=== PATIENT | female | born 1995 | race Caucasian/White ===

== ENCOUNTER → 2018-06-01 14:57 | Outpatient (CLI) | payer OTHER, MEDICAID, SELFPAY ==
[2018-06-01 15:12] LABS: Add Manual Diff / Slide Review NO; Basophils Percent Auto 0.7 % (0-2); Eosinophils Percent Auto 0.7 % (2-4); Hematocrit 41.1 % (36-46); Hemoglobin 14.1 g/dL (12.0-16.0); Mean Corpuscular HGB Conc 34.3 % (30-36); Mean Corpuscular Hemoglobin 30.6 PG (26-34); Monocytes Percent Auto 7.6 % (3-14); Neutrophils Absolute Auto 4300 /uL (1500-7000); Platelet Count 191 X10^3/uL (150-400); Red Blood Cell Count 4.62 X10^6/uL (4.0-5.2); White Blood Cell Count 6.3 X10^3/uL (4.5-11.0)
[2018-06-01 15:24] LABS: Alanine Aminotransferase 24 IU/L (9-52); Albumin 4.5 g/dL (3.5-5.0); Albumin Globulin Ratio 1.7 (1.0-2.8); Alkaline Phosphatase 38 U/L (38-126); Aspartate Aminotransferase 22 IU/L (14-36); BUN Creatinine Ratio 18.3 (6-22); Bilirubin Total 0.3 mg/dL (0.2-1.3); Blood Urea Nitrogen 11 mg/dL (7-17); Calcium 9.6 mg/dL (8.4-10.2); Carbon Dioxide 25 mmol/L (22-32); Chloride 106 mmol/L (98-107); Estimated Glomerular Filt Rate > 60.0 mL/min (>60); Globulin 2.6 g/dL (1.7-4.1); Glucose 87 mg/dL (70-100); HEMOLYSIS < 15 (0-50); Potassium 3.6 mmol/L (3.4-5.1); Sodium 143 mmol/L (137-145); Total Protein 7.1 g/dL (6.3-8.2)
[2018-06-01 15:37] LABS: HEMOLYSIS < 15 (0-50); Iron 55 ug/dL (37-170)
[2018-06-01 15:48] LABS: Percent Iron Saturation 16 % (15-50); Total Iron Binding Capacity 349 ug/dL (265-497); Transferrin 287 mg/dL (206-381)
[2018-06-01 15:59] LABS: Ferritin 8.8 ng/mL (6.27-137)
[2018-06-01 16:13] LABS: Vitamin B12 437 pg/mL (239-931)
== END ==
PROVIDERS: Visit Provider Physician Assistant
DX: R10.9 Unspecified abdominal pain (principal); R53.83 Other fatigue
CPT/HCPCS: 36415; 80053; 82607; 82728; 83540; 83550; 84443; 85025

== ENCOUNTER → 2019-05-01 14:32 | Outpatient (CLI) | payer OTHER, MEDICAID, SELFPAY ==
[2019-05-01 15:03] LABS: Add Manual Diff / Slide Review NO; Basophils Absolute Auto 0 /uL (0-100); Basophils Percent Auto 0.6 % (0-2); Eosinophils Absolute Auto 0 /uL (0-450); Eosinophils Percent Auto 0.6 % (2-4); Hematocrit 42.4 % (36-46); Hemoglobin 14.3 g/dL (12.0-16.0); Lymphocytes Absolute Auto 1500 /uL (1100-4500); Lymphocytes Percent Auto 19.5 % (25-40); Mean Corpuscular HGB Conc 33.8 % (30-36); Mean Corpuscular Hemoglobin 30.3 PG (26-34); Mean Corpuscular Volume 89.7 fL (80-100); Monocytes Absolute Auto 600 /uL (0-900); Monocytes Percent Auto 7.7 % (3-14); Neutrophils Absolute Auto 5700 /uL (1500-7000); Neutrophils Percent Auto 71.6 % (50-75); Platelet Count 164 X10^3/uL (150-400); Red Blood Cell Count 4.72 X10^6/uL (4.0-5.2); Red Cell Distribution Width 13.7 % (11.6-14.8); White Blood Cell Count 7.9 X10^3/uL (4.5-11.0)
[2019-05-01 15:19] LABS: Appearance Urine UA CLEAR; Bilirubin Urine UA NEGATIVE (NEGATIVE); Color Urine UA YELLOW; Glucose Urine UA NEGATIVE (Negative); Ketones Urine UA TRACE (NEGATIVE); Leukocyte Esterase Urine UA NEGATIVE (NEGATIVE); Nitrite Urine UA NEGATIVE (Negative); Occult Blood Urine UA NEGATIVE (Negative); Protein Urine UA NEGATIVE (Negative); Urobilinogen Urine UA 0.2 E.U./dL (0.2)
[2019-05-01 16:12] LABS: Hepatitis B Surface Antigen NEGATIVE s/c (NEGATIVE); Rubella Antibody IgG 9.2 IU/mL (>15)
[2019-05-01 16:25] LABS: HIV 1 & 2 Ab/Ag 4th Gen Combo NEGATIVE (NEGATIVE); Hep C Virus Ab w/Reflex Quant NEGATIVE s/c (NEGATIVE)
[2019-05-04 23:41] LABS: RPR Screen Nonreactive (Nonreactive)
== END ==
PROVIDERS: Visit Provider Obstetrics & Gynecology
DX: Z34.01 Encounter for supervision of normal first pregnancy, first trimester (principal)
CPT/HCPCS: 36415; 80055; 81003; 86787; 86803; 86850; 86900; 86901; 87086; 87389

== ENCOUNTER 2019-06-08 15:30 | Emergency (ER) | payer OTHER, MEDICAID, SELFPAY ==
[2019-06-08 16:13] VITALS: BP 101/62; PULSE 72; RESP 16; TEMP 37.2; O2SAT 100; BMI 22.4
[2019-06-08 16:55] LABS: Add Manual Diff / Slide Review NO; Basophils Absolute Auto 0 /uL (0-100); Basophils Percent Auto 0.4 % (0-2); Eosinophils Absolute Auto 0 /uL (0-450); Eosinophils Percent Auto 0.6 % (2-4); Hematocrit 39.8 % (36-46); Hemoglobin 14.1 g/dL (12.0-16.0); Lymphocytes Absolute Auto 1500 /uL (1100-4500); Lymphocytes Percent Auto 23.4 % (25-40); Mean Corpuscular HGB Conc 35.3 % (30-36); Mean Corpuscular Hemoglobin 31.4 PG (26-34); Monocytes Absolute Auto 500 /uL (0-900); Monocytes Percent Auto 8.1 % (3-14); Neutrophils Absolute Auto 4400 /uL (1500-7000); Neutrophils Percent Auto 67.5 % (50-75); Platelet Count 152 X10^3/uL (150-400); Red Blood Cell Count 4.47 X10^6/uL (4.0-5.2); Red Cell Distribution Width 13.8 % (11.6-14.8); White Blood Cell Count 6.6 X10^3/uL (4.5-11.0)
[2019-06-08 17:04] LABS: Alanine Aminotransferase 12 IU/L (<35); Albumin 4.2 g/dL (3.5-5.0); Albumin Globulin Ratio 1.4 (1.0-2.8); Alkaline Phosphatase 35 U/L (38-126); Aspartate Aminotransferase 19 IU/L (14-36); Bilirubin Total 0.2 mg/dL (0.2-1.3); Blood Urea Nitrogen 9 mg/dL (7-17); Calcium 9.4 mg/dL (8.4-10.2); Carbon Dioxide 23 mmol/L (22-32); Chloride 104 mmol/L (98-107); Estimated Glomerular Filt Rate > 60.0 mL/min (>60); Globulin 2.9 g/dL (1.7-4.1); Glucose 81 mg/dL (70-100); HEMOLYSIS < 15 (0-50); Potassium 3.4 mmol/L (3.4-5.1); Sodium 139 mmol/L (137-145); Total Protein 7.1 g/dL (6.3-8.2)
[2019-06-08 17:45] LABS: HCG Quantitative /Beta subunit 39401 mIU/mL
[2019-06-08 19:15] LABS: RBC Urine None Seen (0-5/HPF)
[2019-06-08] MEDS: ONDANSETRON 4 MG/2 ML INJ IV (19:15)
[2019-06-08] MEDS: SODIUM CHLORIDE 0.9% 1,000 ML 1000 ML IV ×2 (19:15→20:05)
[2019-06-08 19:16] LABS: Appearance Urine UA CLEAR; Bilirubin Urine UA NEGATIVE (NEGATIVE); Color Urine UA YELLOW; Glucose Urine UA NEGATIVE (Negative); Ketones Urine UA NEGATIVE (NEGATIVE); Leukocyte Esterase Urine UA NEGATIVE (NEGATIVE); Nitrite Urine UA NEGATIVE (Negative); Occult Blood Urine UA NEGATIVE (Negative); Protein Urine UA NEGATIVE (Negative); Urobilinogen Urine UA 0.2 E.U./dL (0.2)
[2019-06-08 19:25] LABS: pH Urine UA 6.5 (4.5-8.0)
[2019-06-08 19:26] LABS: Amorphous Sediment Urine 1+; Bacteria Urine Occasional (0-1); Mucus Urine 2+ (Negative); Squamous Epithelial Cell Urine 1-5 /HPF (0-5/HPF); WBC Urine 1-5/HPF (0-5/HPF)
[2019-06-08 19:27] LABS: Culture Indicated Urine Cult Not Indicated
[2019-06-08 19:39] VITALS: BP 105/70
--- NOTE | 2019-06-08 19:54 | ED_ITS ---
HPI - Nausea/Vomiting/Diarrhea General Chief complaint: Nausea/Vomiting/Diarrhea Stated complaint: 14wks , weight loss, sent by DO for fluids Time Seen by Provider: 06/08/19 19:27 Source: patient Mode of arrival: Ambulatory Limitations: no limitations History of Present Illness HPI Narrative: 24-year-old female nonsmoker is a at 14 weeks sent by her psychology technician because of persistent nausea, vomiting decreased appetite and had 10-15 lb weight loss in the past 1-2 weeks. She denies any significant pain and has had no fever or chills. She has no dysuria, frequency or urgency and denies pelvic pain, bleeding or cramping. She was given a prescription for Zofran last night and has been able to eat and drink without difficulty today. She was sent in for fluids and further evaluation. Patient was having episodes of dizziness and lightheadedness upon standing but that has since resolved MD complaint: nausea and vomiting Onset (ago): week(s) Description of Vomiting: food contents Description of Diarrhea: none Associated Abdominal Pain: No Severity: moderate Relieving factors: none Exacerbating factors: none Associated symptoms: denies other symptoms Related Data Home Medications Medication Instructions Recorded Confirmed prenat.vits,london,[id number] 1 tab PO DAILY 05/01/19 06/08/19 Previous Rx's Medication Instructions Recorded ondansetron 4 mg disintegrating 4 mg PO Q8H PRN #20 tab 06/07/19 tablet Allergies Allergy/AdvReac Type Severity Reaction Status Date / Time No Known Drug Allergies Allergy Verified 06/08/19 16:13 Review of Systems Constitutional Constitutional: Denies chills, Denies fatigue, Denies fever(s), Denies frequent falls, Denies lethargy and Denies weakness Eyes Eyes: Denies change in vision, Denies eye discharge, Denies irritation and Denies loss of vision ENT Ears, Nose, Mouth, and Throat: Denies change in voice, Denies dizziness, Denies neck pain, Denies sore throat and Denies throat swelling Cardiovascular Cardiovascular: Denies chest pain, Denies irregular heart rhythm, Denies lightheadedness, Denies palpitations, Denies dyspnea, Denies dyspnea on exertion and Denies orthopnea Respiratory Respiratory: Denies cough, Denies dyspnea, Denies dyspnea on exertion and Denies wheezing Gastrointestinal Gastrointestinal: Denies abdominal pain, Denies change in bowel habits, Denies diarrhea, Reports nausea and Reports vomiting Genitourinary Genitourinary: Denies hematuria, Denies flank pain, Denies urinary incontinence and Denies urinary urgency Musculoskeletal Musculoskeletal: Denies back pain, Denies muscle weakness, Denies neck pain, Denies numbness and Denies tingling Integumentary/Breasts Skin/Breast: Denies pruritus, Denies erythema, Denies rash and Denies wounds Neurologic Neurologic: Denies behavioral changes, Denies confusion, Denies dizziness, Denies frequent falls, Denies loss of vision, Denies numbness, Denies tingling and Denies weakness Psychiatric Psychiatric: Denies anxiety, Denies behavioral changes, Denies confusion, Denies depression, Denies homicidal ideation and Denies suicidal ideation Endocrine Endocrine: Denies fatigue, Denies flushing and Denies palpitations Hematologic/Lymphatic Hematologic/Lymphatic: Denies easy bruising Allergic/Immunologic Allergic/Immunologic: Denies urticaria, Denies throat swelling and Denies wheezing Patient History Medical History Anemia (Acute) Asthma (Chronic) Eczema (Acute) Family history of fraternal twins (Acute) Stomach pain (Acute) Surgical History [place] teeth extracted (Acute) Social History marital status: unmarried,single (In a relationship with Khang.) education level: high school occupational status: employed ([employer]) current occupational exposures/hazards: No special erlinda needs: No Smoking Status: Never smoker Smoking Status: Never smoker Substance Use Type: does not use Exam Narrative Exam Narrative: GENERAL: [24] year old patient appears stated age. Well- nourished, well-developed patient, in mild distress. HEAD: Atraumatic. Normocephalic. EYES: Pupils equal round and reactive. Extraocular motions intact. No scleral icterus. No injection or drainage. ENT: Nose without bleeding, purulent drainage. Throat without erythema, tonsillar hypertrophy or exudate. Airway patent. NECK: Trachea midline. Non tender CARDIOVASCULAR: Regular rate and rhythm without murmurs, gallops, or rubs. RESPIRATORY: Clear to auscultation. Breath sounds equal bilaterally. No wheezes, rales, or rhonchi. GASTROINTESTINAL: Abdomen soft, non-tender, nondistended. EXTREMITIES: No edema or joint tenderness. BACK: Nontender without deformity or crepitance. No flank tenderness. NEURO: AOx3. SKIN: No rash or erythema of visible areas Initial Vital Signs Initial Vital Signs: Vital Signs Temperature 99 F 06/08/19 16:13 Pulse Rate 72 06/08/19 16:13 Respiratory Rate 16 06/08/19 16:13 Blood Pressure 101/62 06/08/19 16:13 Pulse Oximetry 100 06/08/19 16:13 Course Orders Ordered: ED Orders 06/08/19 16:35 Complete Blood Count AUTO DIFF Stat Comprehensive Metabolic Panel Stat HCG Quantitative Stat Ketones (Beta-Hydroxybutyrate) Stat 06/08/19 19:13 Urinalysis and Microscopic Stat 06/08/19 20:27 US OB limited Stat Discontinued Medications Sodium Chloride (Normal Saline 0.9%) 1,000 mls @ 1,000 mls/hr IV BOLUS ONE Stop: 06/08/19 17:27 Last Infusion: 06/08/19 20:04 Dose: 0 mls/hr Documented by: Admin: 06/08/19 19:15 Dose: 1,000 mls/hr Documented by: OTTO Sodium Chloride (Normal Saline 0.9%) 1,000 mls @ 1,000 mls/hr IV BOLUS ONE Stop: 06/08/19 20:53 Last Infusion: 06/08/19 21:08 Dose: 0 mls/hr Documented by: Admin: 06/08/19 20:05 Dose: 1,000 mls/hr Documented by: OTTO Ondansetron HCl (Zofran) 4 mg IV NOW ONE Stop: 06/08/19 16:29 Last Admin: 06/08/19 19:15 Dose: 4 mg Documented by: OTTO Pantoprazole Sodium (Protonix) 40 mg IV NOW ONE Stop: 06/08/19 20:28 Last Admin: 06/08/19 20:42 Dose: 40 mg Documented by: OTTO Vital Signs Vital signs: Vital Signs - 8 hr 06/08/19 19:39 06/08/19 21:30 Pulse Rate 87 Blood Pressure [Right Arm] 105/70 108/76 Pulse Oximetry 96 MDM - Nausea/Vomiting/Diarrhea Lab Data Result diagrams: 06/08/19 16:35 06/08/19 16:35 Labs: Lab Results 06/08/19 06/08/19 06/08/19 Range/Units 16:35 16:35 16:35 WBC 6.6 (4.5-11.0) X10^3/uL RBC 4.47 (4.0-5.2) X10^6/uL Hgb 14.1 (12.0-16.0) g/dL Hct 39.8 (36-46) % MCV 89.0 (80-100) fL MCH 31.4 (26-34) PG MCHC 35.3 (30-36) % RDW 13.8 (11.6-14.8) % Plt Count 152 (150-400) X10^3/uL Neut % (Auto) 67.5 (50-75) % Lymph % (Auto) 23.4 L (25-40) % [place] % (Auto) 8.1 (3-14) % Eos % (Auto) 0.6 L (2-4) % Baso % (Auto) 0.4 (0-2) % Neut # (Auto) 4400 (9374-8494) /uL Lymph # (Auto) 1500 (3130-2180) /uL [place] # (Auto) 500 (0-900) /uL Eos # (Auto) 0 (0-450) /uL Baso # (Auto) 0 (0-100) /uL Sodium 139 (137-145) mmol/L Potassium 3.4 (3.4-5.1) mmol/L Chloride 104 (98-107) mmol/L Carbon Dioxide 23 (22-32) mmol/L BUN 9 (7-17) mg/dL Creatinine 0.50 L (0.52-1.04) mg/dL Estimated GFR > 60.0 (>60) mL/min BUN/Creatinine Ratio 18.0 (6-22) Glucose 81 (70-100) mg/dL Calcium 9.4 (8.4-10.2) mg/dL Total Bilirubin 0.2 (0.2-1.3) mg/dL AST 19 (14-36) IU/L ALT 12 (<35) IU/L Alkaline Phosphatase 35 L (38-126) U/L Total Protein 7.1 (6.3-8.2) g/dL Albumin 4.2 (3.5-5.0) g/dL Globulin 2.9 (1.7-4.1) g/dL Albumin/Globulin Ratio 1.4 (1.0-2.8) HCG, Quant 73779 mIU/mL Urine Color Urine Appearance Urine pH (4.5-8.0) Ur Specific [place] (1.000-1.035) Urine Protein (Negative) Urine Glucose (UA) (Negative) g/dL Urine Ketones (NEGATIVE) Urine Occult Blood (Negative) Urine Nitrate (Negative) Urine Bilirubin (NEGATIVE) Urine Urobilinogen (0.2) E.U./dL Ur Leukocyte Esterase (NEGATIVE) Urine RBC (0-5/HPF) Urine WBC (0-5/HPF) Ur Squamous Epith Cells (0-5/HPF) Amorphous Sediment Urine Bacteria (None) Urine Mucus (Negative) Ur Culture Indicated? Ketones 0.09 (<0.27) mmol/L 06/08/19 Range/Units 19:13 WBC (4.5-11.0) X10^3/uL RBC (4.0-5.2) X10^6/uL Hgb (12.0-16.0) g/dL Hct (36-46) % MCV (80-100) fL MCH (26-34) PG MCHC (30-36) % RDW (11.6-14.8) % Plt Count (150-400) X10^3/uL Neut % (Auto) (50-75) % Lymph % (Auto) (25-40) % [place] % (Auto) (3-14) % Eos % (Auto) (2-4) % Baso % (Auto) (0-2) % Neut # (Auto) (2304-4108) /uL Lymph # (Auto) (7514-9748) /uL [place] # (Auto) (0-900) /uL Eos # (Auto) (0-450) /uL Baso # (Auto) (0-100) /uL Sodium (137-145) mmol/L Potassium (3.4-5.1) mmol/L Chloride (98-107) mmol/L Carbon Dioxide (22-32) mmol/L BUN (7-17) mg/dL Creatinine (0.52-1.04) mg/dL Estimated GFR (>60) mL/min BUN/Creatinine Ratio (6-22) Glucose (70-100) mg/dL Calcium (8.4-10.2) mg/dL Total Bilirubin (0.2-1.3) mg/dL AST (14-36) IU/L ALT (<35) IU/L Alkaline Phosphatase (38-126) U/L Total Protein (6.3-8.2) g/dL Albumin (3.5-5.0) g/dL Globulin (1.7-4.1) g/dL Albumin/Globulin Ratio (1.0-2.8) HCG, Quant mIU/mL Urine Color Yellow Urine Appearance Clear Urine pH 6.5 (4.5-8.0) Ur Specific [place] 1.020 (1.000-1.035) Urine Protein Negative (Negative) Urine Glucose (UA) Negative (Negative) g/dL Urine Ketones Negative (NEGATIVE) Urine Occult Blood Negative (Negative) Urine Nitrate Negative (Negative) Urine Bilirubin Negative (NEGATIVE) Urine Urobilinogen 0.2 (0.2) E.U./dL Ur Leukocyte Esterase Negative (NEGATIVE) Urine RBC None seen (0-5/HPF) Urine WBC 1-5/hpf (0-5/HPF) Ur Squamous Epith Cells 1-5 /hpf (0-5/HPF) Amorphous Sediment 1+ Urine Bacteria Occasional (0-1) (None) Urine Mucus 2+ H (Negative) Ur Culture Indicated? Cult not indicated Ketones (<0.27) mmol/L Discharge Plan Departure Patient Disposition: Home Clinical Impression: Nausea and vomiting during Discharge Date/Time: 06/08/19 22:05 Instructions: Nausea of (Alternative Therapy), DI for Dehydration -- Adult Activity Restrictions/Additional Instructions: *You have been diagnosed with [nausea and vomiting of ] *What to do: *Take medications as directed *Follow up with your primary care provider in 2-3 days, call for an nolan ointment. Let them know you were seen in the Emergency Department and that we ask that you be seen in follow up. I've spoken with her (Dr. Valencia) twice tonight. *Return to ER if you should have any new, worsening or concerning symptoms 1. Drink plenty of fluids with frequent small sips. 2. For the next 24 hours a clear liquid diet is advised. After that please employ a brat diet which would include bananas, rice, apples, toast. 3. Please take medications as directed. 4. Please follow-up with your doctor in the next 1-2 days. Call the office for an appointment. 5. Please return to the emergency Department for any worsening or persistent symptoms, such as increasing pain or fever. Prescriptions: No Action ondansetron 4 mg tablet,disintegrating 4 mg PO Q8H PRN (Reason: nausea and vomiting) Qty: 20 RF: 1 prenat.vits,london,[id number] Tablet 1 tab PO DAILY RF: 0
--- NOTE | 2019-06-08 20:27 | DI.US.S_ITS ---
PROCEDURE: US OB LIMITED INDICATIONS: PAIN, CRAMPING OUTSIDE/PRIOR DATING DATA: Last menstrual period (LMP): 03/01/19. LMP-based estimated date of delivery (CASE): 12/06/19. First dating scan (date and location): 06/08/19. Estimated date of delivery (CASE) from first dating scan: 11/24/19. TECHNIQUE: Real-time scanning was performed of the fetus, with image documentation. Endovaginal scanning: Not performed COMPARISON: None. FINDINGS: A single living intrauterine gestation is present. heart rate: 145 beats per minute. Biparietal diameter measures 3.2 cm, 15 weeks 6 days Head circumference measures 12.3 cm, 16 weeks one day Abdominal circumference measures 9.8 cm, 15 weeks 6 days Estimated gestational age: 15 weeks 6 days Normal appearance of the placenta. No evidence of abruption. IMPRESSION: Limited examination demonstrating single living intrauterine fetus demonstrating gestational age of 15 weeks and 6 days No evidence of placental abruption Dictated by: Denilson Mesa M.D. on 06/08/2019 at 21:28 Approved by: Denilson Mesa M.D. on 06/08/2019 at 21:31
[2019-06-08 20:42] LABS: Ketones (Beta-Hydroxybutyrate) 0.09 mmol/L (<0.27)
[2019-06-08] MEDS: PANTOPRAZOLE 40 MG VIAL IV (20:42)
[2019-06-08 21:30] VITALS: BP 108/76; PULSE 87; O2SAT 96
== END 2019-06-08 22:05 | disposition home or self-care (01) ==
PROVIDERS: Emergency Medicine; Emergency Provider Emergency Medicine
DX: O26.892 Other specified pregnancy related conditions, second trimester (principal); R11.2 Nausea with vomiting, unspecified; Z3A.14 14 weeks gestation of pregnancy
CPT/HCPCS: 36415; 76815; 80053; 81001; 82009; 84702; 85025; 96361; 96374; 96375; 99284; C9113; J2405

== ENCOUNTER → 2019-07-23 08:58 | Outpatient (CLI) | payer OTHER, MEDICAID, SELFPAY ==
--- NOTE | 2019-07-23 09:00 | DI.US.S_ITS ---
PROCEDURE: US OB >= 14 WEEKS FETUS INDICATIONS: ANATOMY OUTSIDE/PRIOR DATING DATA: Last menstrual period (LMP): 03/01/19. LMP-based estimated date of delivery (CASE): 12/06/19. First dating scan (date and location): 06/08/19. Estimated date of delivery (CASE) from first dating scan: 11/24/19. TECHNIQUE: Real-time scanning was performed of the fetus, with image documentation and biometric measurements. COMPARISON: None. FINDINGS: General: A single living intrauterine gestation is present. Presentation: Vertex. Placenta: Placental position is anterior, without previa. Amniotic fluid index: 11.8 cm, normal range is 5-24 cm. heart rate: 140 beats per minute. Maternal cervical canal: 3.1 cm long. Normal lower limit is 2.5 cm. biometrics: Biparietal diameter: 22 weeks Head circumference: 21 weeks 6 days Abdominal circumference: 21 weeks 2 days Femur length: 22 weeks Estimated gestational age from initial scan: 22 weeks 2 days Composite gestational age from present scan: 21 weeks 6 days Estimated weight and percentile: 439 g; 60 and percentile Measurement variability for biometric dating: +/- 7 days from 14 weeks to 15 weeks 6 days gestation, +/- 10 days from 16 weeks to 21 weeks 6 days gestation, +/- 2 weeks from 22 weeks to 27 weeks 6 days gestation, +/- 3 weeks for 28 weeks gestation or later. weight reference: 4500 g or EFW >90/95% is considered macrosomia or large for gestational age. EFW <10% is small for gestational age. EFW 5% or less is considered intra-uterine growth restriction. Anatomic survey: Neuro: Ventricles are non-dilated at less than 10 mm. Cisterna magna is normal at 3-11 mm. Cerebellum is normal in size and morphology. Nuchal skin fold: Normal at less than 6 mm between 14-21 weeks gestational age. Face: Nose and lips, facial profile are normal. Spine: No evidence for spina bifida. Heart: 4-chambered heart is present, with normal ventricular outflow tracts. Diaphragm: Diaphragm is intact. Stomach: Left-sided stomach is present. Kidneys: No hydronephrosis. Normal is less than 5 mm in 2nd trimester, less than 7 mm in 3rd trimester. Cord: 3-vessel cord has orthotopic insertion. Bladder: Normal in size. Extremities: All 4 extremities identified. IMPRESSION: 1. Single living IUP redemonstrated and interval growth is normal. 2. Normal anatomic survey. Dictated by: Dima German [facility] Interpreted: Beatriz Avalos MD on 07/23/2019 at 10:14 Approved by: Beatriz Avalos M.D. on 07/23/2019 at 17:12
== END ==
PROVIDERS: PCP Obstetrics & Gynecology; Referring Provider Obstetrics & Gynecology; Visit Provider Obstetrics & Gynecology
DX: Z34.02 Encounter for supervision of normal first pregnancy, second trimester (principal); Z3A.21 21 weeks gestation of pregnancy
CPT/HCPCS: 76811

== ENCOUNTER → 2019-09-26 09:50 | Outpatient (CLI) | payer OTHER, MEDICAID, SELFPAY ==
[2019-09-26 11:54] LABS: Hematocrit 38.7 % (36-46); Hemoglobin 13.4 g/dL (12.0-16.0)
[2019-09-26 12:01] LABS: GTT (PREG) 1 Hour PP 50gm Dose 91 mg/dL (76-139)
== END ==
PROVIDERS: PCP Obstetrics & Gynecology; Referring Provider Obstetrics & Gynecology; Visit Provider Obstetrics & Gynecology
DX: Z34.02 Encounter for supervision of normal first pregnancy, second trimester (principal); Z3A.24 24 weeks gestation of pregnancy
CPT/HCPCS: 36415; 82950; 85014; 85018; 86850; 86870

== ENCOUNTER → 2019-11-02 09:06 | Outpatient (CLI) | payer OTHER, MEDICAID, SELFPAY ==
[2019-11-03 08:30] LABS: Strep Grp B PCR NEG for Grp B Strep
== END ==
PROVIDERS: PCP Obstetrics & Gynecology; Visit Provider Obstetrics & Gynecology
DX: Z34.03 Encounter for supervision of normal first pregnancy, third trimester (principal); Z3A.36 36 weeks gestation of pregnancy
CPT/HCPCS: 87653

== ENCOUNTER → 2019-11-07 13:54 | Outpatient (CLI) | payer OTHER, MEDICAID, SELFPAY ==
--- NOTE | 2019-11-07 13:55 | DI.US.S_ITS ---
PROCEDURE: OB FOLLOW UP INDICATIONS: GROWTH EVALUATION OUTSIDE/PRIOR DATING DATA: Last menstrual period (LMP): 03/01/19. LMP-based estimated date of delivery (CASE): 12/06/19. First dating scan (date and location): 06/08/19. Estimated date of delivery (CASE) from first dating scan: 11/24/19. TECHNIQUE: Real-time scanning was performed of the fetus, with image documentation and biometric measurements. Endovaginal scanning: No COMPARISON: [facility], OB >= 14 WEEKS FETUS, 10/10/2019, 13:38. [facility] OB >= 14 WEEKS FETUS, 07/23/2019, 9:20. [facility], OB LIMITED, 06/08/2019, 20:51. FINDINGS: General: A single living intrauterine gestation is present. Presentation: Vertex. Placenta: Placental position is anterior, without previa. Amniotic fluid index: 11.8 cm, normal range is 5-24 cm. heart rate: 130 beats per minute. Maternal cervical canal: Not well-seen. biometrics: Biparietal diameter: 37 weeks 2 days Head circumference: 37 weeks 1 day Abdominal circumference: 34 weeks 3 days Femur length: 34 weeks 1 day Estimated gestational age from initial scan: 37 weeks 4 days Composite gestational age from present scan: 35 weeks 3 days Estimated weight and percentile: 2540 g; 6 percentile Measurement variability for biometric dating: +/- 7 days from 14 weeks to 15 weeks 6 days gestation, +/- 10 days from 16 weeks to 21 weeks 6 days gestation, +/- 2 weeks from 22 weeks to 27 weeks 6 days gestation, +/- 3 weeks for 28 weeks gestation or later. weight reference: 4500 g or EFW >90/95% is considered macrosomia or large for gestational age. EFW <10% is small for gestational age. EFW 5% or less is considered intra-uterine growth restriction. Other: Not applicable. IMPRESSION: 1. Single living IUP redemonstrated and interval growth is less than expected with estimated weight at the 6th percentile. Developing macrosomia cannot be excluded and close clinical correlation and followup recommended. Dictated by: Dima MAXWELL Interpreted: Cuong Henry MD on 11/07/2019 at 16:03 Approved by: Cuong Henry M.D. on 11/07/2019 at 16:21
== END ==
PROVIDERS: PCP Obstetrics & Gynecology; Referring Provider Obstetrics & Gynecology; Visit Provider Obstetrics & Gynecology
DX: Z34.03 Encounter for supervision of normal first pregnancy, third trimester (principal); Z3A.35 35 weeks gestation of pregnancy
CPT/HCPCS: 76816

== ENCOUNTER → 2019-11-08 14:24 | Outpatient (CLI) | payer OTHER, MEDICAID, SELFPAY ==
--- NOTE | 2019-11-08 14:25 | DI.US.S_ITS ---
PROCEDURE: US OB BIOPHYSICAL PROFILE INDICATIONS: SMALL FOR GESTATIONAL AGE OUTSIDE/PRIOR DATING DATA: Last menstrual period (LMP): 03/01/19. LMP-based estimated date of delivery (CASE): 12/06/19. First dating scan (date and location): 06/08/19, [facility]. Estimated date of delivery (CASE) from first dating scan: 11/24/19. TECHNIQUE: Real-time scanning was performed of the fetus, with image documentation and biometric measurements. Biophysical profile was also obtained. COMPARISON: None. FINDINGS: General: A single living intrauterine gestation is present. Presentation: Vertex. Placenta: Placental position is anterior, without previa. Amniotic fluid index: 13.2 cm, normal range is 5-24 cm. heart rate: 132 beats per minute. Biophysical profile: Tone: 2 points. Movement: Eral 2 points. Respiration: 2 points. Largest pocket of fluid: Eral 2 points. IMPRESSION: 8 biophysical profile. Normal FARIBA. Dictated by: Joanna Pretty M.D. on 11/08/2019 at 16:21 Approved by: Joanna Pretty M.D. on 11/08/2019 at 16:23
== END ==
PROVIDERS: PCP Obstetrics & Gynecology; Referring Provider Obstetrics & Gynecology; Visit Provider Obstetrics & Gynecology
DX: Z36.4 Encounter for antenatal screening for fetal growth retardation (principal)
CPT/HCPCS: 76819

== ENCOUNTER 2019-11-08 15:53 | Outpatient (CLI) | payer OTHER, MEDICAID, SELFPAY | END 2019-11-08 16:35 | disposition home or self-care (01) | LOC: LABOR 17:06 → OB 11-13 07:38 | PROVIDERS: PCP Obstetrics & Gynecology; Referring Provider Obstetrics & Gynecology; Visit Provider Obstetrics & Gynecology | DX: O36.5930 Maternal care for other known or suspected poor fetal growth, third trimester, not applicable or unspecified (principal); Z3A.36 36 weeks gestation of pregnancy | CPT/HCPCS: 59025; 76819; G0378; G0379 ==

== ENCOUNTER 2019-11-12 13:40 | Outpatient (CLI) | payer OTHER, MEDICAID, SELFPAY ==
--- NOTE | 2019-11-12 14:00 | PM.OBTRLD ---
Visit Information Visit Information Date of evaluation: 11/12/19 Primary OB Provider: Jacqueline De La Paz Reason for Evaluation: Yes non-stress test Comments/Additional reasons for admission: Patient sent for NST as part of eval for question of IUGR. Vital Signs Vital Signs: 119/80, HR 66 PFSH Medical History Anemia (Acute) Asthma (Chronic) Eczema (Acute) Family history of fraternal twins (Acute) Stomach pain (Acute) Surgical History [place] teeth extracted (Acute) Social History marital status: unmarried,single (In a relationship with Khang.) education level: high school occupational status: employed ([employer]) current occupational exposures/hazards: No special erlinda needs: No Smoking Status: Never smoker Review of Systems Constitutional Constitutional: Reports system reviewed and no additional complaints, except as documented Evaluation Evaluation Baseline heart rate: 135 Variability: Moderate (11-25) monitor accelerations: Present monitor decelerations: Absent Category of Tracing: I Diagnosis, Plan/Disposition Plan/Disposition Plan: Home with scheduled follow up and precautions. OB Disposition: home
== END 2019-11-12 13:45 | disposition home or self-care (01) ==
LOC: OB 11-13 10:59
PROVIDERS: PCP Obstetrics & Gynecology; Referring Provider Obstetrics & Gynecology; Visit Provider Obstetrics & Gynecology
DX: O36.5930 Maternal care for other known or suspected poor fetal growth, third trimester, not applicable or unspecified (principal); Z3A.37 37 weeks gestation of pregnancy
CPT/HCPCS: 59025; G0378; G0379

== ENCOUNTER 2019-11-19 16:47 | Outpatient (CLI) | payer OTHER, MEDICAID, SELFPAY | END 2019-11-19 17:47 | disposition home or self-care (01) | LOC: LABOR 17:04 → OB 11-20 11:04 | PROVIDERS: PCP Obstetrics & Gynecology; Referring Provider Obstetrics & Gynecology; Visit Provider Obstetrics & Gynecology | DX: O36.5930 Maternal care for other known or suspected poor fetal growth, third trimester, not applicable or unspecified (principal); Z3A.38 38 weeks gestation of pregnancy | CPT/HCPCS: 59025; G0378; G0379 ==